=== PATIENT | male | born 1995 | race Caucasian/White ===

== ENCOUNTER 2024-12-26 20:37 | Emergency (ER) | payer OTHER ==
[~2024-12-26] VITALS: Ht 188 cm; Wt 187.5 kg
[2024-12-26] MEDS ORDERED: HALD100I2 IM (20:56)
[2024-12-26] MEDS ORDERED: DEPA250T32 PO (20:56)
[2024-12-26] MEDS ORDERED: GABA-284 PO (20:56)
[2024-12-26] MEDS ORDERED: ZOLO25TA PO (20:56)
[2024-12-26] MEDS ORDERED: HALO5TAB33 PO (20:56)
[2024-12-26 21:44] LABS: HEMATOCRIT 43.5 % (42.0-52.0); HEMOGLOBIN 15.2 g/dl (13.5-17.5); MEAN CORPUSCULAR HEMOGLOBIN 30.9 pg (27.0-33.0); MEAN CORPUSCULAR HGB CONC 34.9 g/dl (32.0-36.5); MEAN CORPUSCULAR VOLUME 88.4 fl (80.0-96.0); PLATELET COUNT, AUTOMATED 206 10^3/uL (150-450); RED BLOOD COUNT 4.92 10^6/uL (4.30-6.10); WHITE BLOOD COUNT 7.4 10^3/uL (4.0-10.0)
[2024-12-26 22:13] LABS: AMPHETAMINES LEVEL URINE NEGATIVE (NEGATIVE); BARBITURATES URINE NEGATIVE (NEGATIVE); BENZODIAZEPINES URINE NEGATIVE (NEGATIVE); COCAINE METABOLITE URINE NEGATIVE (NEGATIVE); METHADONE URINE NEGATIVE (NEGATIVE); OPIATES URINE NEGATIVE (NEGATIVE); PHENCYCLIDINE URINE NEGATIVE (NEGATIVE)
[2024-12-26 22:14] LABS: CANNABINOIDS URINE NEGATIVE (NEGATIVE)
[2024-12-26 22:15] LABS: ETHYL ALCOHOL (ETHANOL) < 0.003 % (0.000-0.010)
[2024-12-26 22:17] LABS: ALBUMIN 3.4 G/DL (3.2-5.2); ALKALINE PHOSPHATASE 70 U/L (40-129); ALT/SGPT 43 U/L (7.0-40); AST/SGOT 24 U/L (<34); BILIRUBIN,DIRECT < 0.1 MG/DL (<0.4); BILIRUBIN,TOTAL 0.2 MG/DL (0.3-1.2); BLOOD UREA NITROGEN 14 MG/DL (9-23); CALCIUM LEVEL 8.7 MG/DL (8.5-10.1); CARBON DIOXIDE LEVEL 28 MMOL/L (20-31); CHLORIDE LEVEL 107 MMOL/L (98-107); CREATININE FOR GFR 0.78 MG/DL (0.70-1.30); GLOMERULAR FILTRATION RATE > 90.0 (>60); GLUCOSE, FASTING 133 MG/DL (60-100); POTASSIUM SERUM 3.8 MMOL/L (3.5-5.1); SALICYLATE LEVEL < 3.0 MG/DL (<30); SODIUM LEVEL 142 MMOL/L (136-145); TOTAL PROTEIN 6.3 G/DL (5.7-8.2)
[2024-12-26 22:20] LABS: THYROID STIMULATING HORMONE 1.758 uIU/ML (0.55-4.78)
[2024-12-26] MEDS ORDERED: HOME MED LIST COMPLETE! XX SCH (22:25)
[2024-12-26 22:55] VITALS: BP 127/76; TEMP 97.3; O2SAT 96
== END 2024-12-26 23:20 | disposition home or self-care (01) ==
LOC: M ED 20:37
DX: R44.0 Auditory hallucinations (principal); F31.9 Bipolar disorder, unspecified; Z91.199 Patient's noncompliance with other medical treatment and regimen due to unspecified reason; F17.290 Nicotine dependence, other tobacco product, uncomplicated